=== PATIENT | male | born 1940 | race Caucasian/White ===

== ENCOUNTER 2017-06-25 06:05 | Day surgery (SDC) | payer OTHER ==
--- NOTE | 2017-06-24 18:08 | GHP ---
[f rep st] PREOP HISTORY AND PHYSICAL DATE OF ADMISSION: 06/25/2017 ADMISSION DIAGNOSES: Urinary retention and neurogenic bladder. HISTORY OF PRESENT ILLNESS: This is a gentleman who has had moderate urinary tract symptoms, has had multiple procedures done. At the present time, he is being managed with indwelling catheter and wou ld prefer to have a suprapubic catheter and he is admitted for such. PAST MEDICAL HISTORY: 1. Acute renal failure secondary to BPH and retention. 2. Glaucoma. PAST SURGICAL HISTORY: 1. Botox injection. 2. Cyst removal. 3. Tonsillectomy. MEDICATIONS: 1. Amantadine. 2. Methenamine. 3. Myrbetriq. ALLERGIES: No known allergies. FAMILY HISTORY: Positive for dementia, heart disease, prostate cancer. SOCIAL HISTORY: Mild alcohol consumption, former smoker. REVIEW OF SYSTEMS: Negative cardiac, respiratory, GI, endocrine. PHYSICAL EXAMINATION: VITAL SIGNS: Stable. CHEST: Clear. Nonlabored breathing. ABDOMEN: Soft. EXTREMITIES: Lower extremities are normal. PLAN: At the present time, he is admitted for a suprapubic catheter. /[id number]/MODL
--- NOTE | 2017-06-25 06:55 | PDANEPAE ---
ANE History of Present Illness 76 yo male with outlet obstruction secondary to BPH with indwelling Valencia desiring to change to suprapubic catheter. ANE Past Medical History - Cardiovascular History Hx Hypertension: No Hx Arrhythmias: No Hx Chest Pain: No Hx Coronary Artery / Peripheral Vascular Disease: No Hx Palpitations: No - Pulmonary History Hx COPD: No Hx Asthma/Reactive Airway Disease: No Hx Oxygen in Use at Home: No Hx Sleep Apnea: No - Neurologic History Hx Cerebrovascular Accident: No Hx Seizures: No Hx Dementia: No Neurologic History Comment: Parkinson's disease - Endocrine History Hx Diabetes: No Hypothyroid: No - Renal History Hx Renal Disorders: Yes - Liver History Hx Hepatic Disorders: No - Neurological & Psychiatric Hx Hx Neurological and Psychiatric Disorders: No - GI History GERD: no - Chronic Pain History Chronic Pain: No ANE Review of Systems Review of Systems: - Systems Constitutional: Reports: no symptoms EENMT: Reports: no symptoms Respiratory: Reports: no symptoms Genitourinary: Reports: other (outlet obstruction secondary to BPH) ANE Patient History - Allergies Allergies/Adverse Reactions: No Known Allergies Allergy (Verified 06/25/17 06:57) - Home Medications Home Medications: Amantadine 06/24/17 [Last Taken Unknown] Calcium 06/24/17 [Last Taken Unknown] Methenamine David 06/24/17 [Last Taken Unknown] Myrbetriq 06/24/17 [Last Taken Unknown] Tamsulosin HCl 06/24/17 [Last Taken Unknown] Timolol 0.5% 06/24/17 [Last Taken Unknown] - NPO status NPO Since - Liquids (Date): 06/25/17 NPO Since - Liquids (Time): 05:00 (sip of water with med) NPO Since - Solids (Date): 06/24/17 - Anes Hx Anes Hx: no prior problems - Smoking Hx Smoking Status: Former smoker - Family Anes Hx Family Anes Hx: neg - N/A ANE Physical Exam - Airway Neck exam: decreased ROM Mallampati Score: Class 3 Mouth exam: normal dental/mouth exam - Pulmonary Pulmonary: clear to auscultation, other (poor effort) - Cardiovascular Cardiovascular: regular rate and rhythym - ASA Status ASA Status: III ANE Anesthesia Plan Anesthesia Plan: GA w LMA
[2017-06-25] MEDS ORDERED: LR 1,000 ML IV ONE (07:08)
[2017-06-25] MEDS ORDERED: ceFAZolin 2 GM/SWFI 2 GM/20 ML SYR IVP ONE (07:09)
--- NOTE | 2017-06-25 07:10 | PDHPUP ---
History & Physical Update H&P update statement: This history and physical update is based on an assessment of the patient which was completed after admission or registration (within 24 hours), but prior to the surgery/procedure. H&P update: H&P reviewed & patient examined, no change in patient's condition since H&P completed
[2017-06-25 07:12] LABS: PLATELET COUNT 213 10^3/uL (150-400)
[2017-06-25] MEDS ORDERED: LIDOCAINE 2% 5 ML SDV ONE (07:16)
[2017-06-25] MEDS ORDERED: PROPOFOL/EMULSION 500 MG/50 ML BOTTLE IV ONE (07:16)
[2017-06-25] MEDS ORDERED: fentaNYL 100 MCG/2 ML INJ ONE (07:16)
[2017-06-25] MEDS ORDERED: DEXAMETHASONE 4 MG/ML VIAL ONE (07:16)
[2017-06-25] MEDS ORDERED: ceFAZolin 2 GM/SWFI 20 ML SYR IVP ONE (07:17)
[2017-06-25] MEDS ORDERED: fentaNYL 100 MCG/2 ML INJ IVP PRN (08:08)
[2017-06-25] MEDS ORDERED: HYDROCODONE/APAP 5/325 TAB PO PRN (08:08)
[2017-06-25] MEDS ORDERED: ACETAMINOPHEN 500 MG TAB PO PRN (08:08)
[2017-06-25] MEDS ORDERED: NALOXONE HCL 0.4 MG/ML INJ IVP PRN (08:08)
[2017-06-25] MEDS ORDERED: ALBUTEROL 3 ML DEYVIAL IH PRN (08:08)
[2017-06-25] MEDS ORDERED: ONDANSETRON 4 MG/2 ML VIAL IVP PRN (08:08)
[2017-06-25] MEDS ORDERED: PROMETHAZINE HCL 25 MG/ML INJ IVP PRN (08:08)
--- NOTE | 2017-06-25 08:25 | POSTANESTH ---
Post Anesthetic Evaluation Cardiovascular Status: Normal, Stable Respiratory Status: Normal, Stable Level of Consciousness/Mental Status: Can Participate in Eval, Mildly Sleepy, Arousable Pain Control: Adequate, Prn Tx Ordered Nausea/Vomiting Control: Adequate, Prn Tx Ordered Complications Possibly Related to Anesthesia: None Noted
--- NOTE | 2017-06-25 08:26 | GOP ---
[f rep st] OPERATIVE REPORT DATE OF OPERATION: 06/25/2017 SURGEON: Ant Villeda MD PREOPERATIVE DIAGNOSIS: Urinary retention requiring catheterization. POSTOPERATIVE DIAGNOSIS: Urinary retention requiring catheterization. PROCEDURE PERFORMED: Suprapubic cystotomy and cystoscopy. FINDINGS: SPECIMENS: No specimen was obtained. ESTIMATED BLOOD LOSS: Less than 5 mL. DESCRIPTION OF PROCEDURE: The gentleman underwent general anesthesia, prepped and draped in normal s terile fashion in the dorsal lithotomy position. After appropriate time-out, flexible cystoscope was utilized to evaluate the urethra, prostate and bladder and then the bladder was filled and I could i dentify the anterior bladder just above the symphysis pubis and at that point, with the bladder full and him totally paralyzed and relaxed, I was able to take a Lowsley retractor and making a small inci neil just above the pubic ramus and then passed a Lowsley retractor through the anterior bladder wall through the linea alba and then a 16 Valencia catheter was grasped, pulled into the bladder and the bal loon was inflated to 7 mL. Catheter was sewn in place with a 2-0 silk for stabilization. I did cyst oscope him afterwards that showed the catheter and balloon was in the bladder appropriately and there was no bleeding identified whatsoever. The bladder was irrigated and irrigated clear hand. He tole rated the procedure well. Sterile dressing placed and then he will be discharged home to see me in 1 month for catheter change. COMPLICATIONS: None. /[id number]/MODL
[2017-06-25 08:46] VITALS: TEMP 97.9
[2017-06-25 09:18] VITALS: BP 130/69; PULSE 64; RESP 18; O2SAT 93
== END 2017-06-25 10:15 | disposition home or self-care (01) ==
LOC: FSGY 06:05
PROVIDERS: ATTEND Specialist
PROC: 0T9B00Z Drainage of Bladder with Drainage Device, Open Approach (ICD-10-PCS; principal; 2017-06-25 07:15)
DX: N31.9 Neuromuscular dysfunction of bladder, unspecified (principal)
CPT/HCPCS: J0690; J1100; J2704; J3010